=== PATIENT | female | born 1990 | race American Indian/Alaskan Native ===

== ENCOUNTER 2018-03-10 07:53 | Outpatient (CLI) | payer OTHER ==
--- NOTE | 2018-03-13 15:15 | Magnetic Resonance Report ---
FINAL REPORT PROCEDURE: MR LE JOINT LT WO CON TECHNIQUE: Magnetic resonance imaging of the LEFT ankle was performed using standard pulse sequences. HISTORY: SPRAIN COMPARISON: No prior studies are available for comparison. FINDINGS: The signal intensity from the bones of the ankle appear normal. No fracture is seen. The ankle mortise and talar dome are intact. The anterior and the posterior talofibular ligaments are intact. Posterior tibialis, flexor digitorum longus, flexor hallucis longus peroneus brevis and longus tendons are intact. Extensor tendons also appear intact. Deltoid ligament appears intact. There is subcutaneous edema seen medial aspect of the ankle. No hematoma is visualized. No mass is detected. Edema related to partial tear of the adjacent retinaculum such as the superior aspect of the flexor retinaculum or inferior aspect of the proximal extensor retinaculum could present in this manner. No hematoma or mass is visualized. IMPRESSION: Subcutaneous edema seen medial aspect of the ankle. No hematoma or mass is visualized. Flexor and extensor tendons in the deltoid ligament appear intact. Partial tear of 1 of the adjacent retinaculum could present in this manner. I do not suspect complete disruption of the retinaculum.
== END 2018-03-10 07:54 | disposition home or self-care (01) ==
LOC: MRI 07:53
DX: S93.402A Sprain of unspecified ligament of left ankle, initial encounter (principal); X58.XXXA Exposure to other specified factors, initial encounter; Y93.89 Activity, other specified; Y92.89 Other specified places as the place of occurrence of the external cause; Y99.8 Other external cause status
CPT/HCPCS: 73721